=== PATIENT | male | born 1985 | race Caucasian/White ===

== ENCOUNTER 2018-03-10 10:30 | Day surgery (SDC) | payer OTHER ==
[2018-03-10] MEDS ORDERED: RECTICARE30 GM TOP (12:13)
[2018-03-10] MEDS ORDERED: PERCOCET 5-3251 EACH PO (12:13)
== END 2018-03-10 16:50 ==
LOC: CIR.AMB 10:30
DX: D3A.026 Benign carcinoid tumor of the rectum (principal)